=== PATIENT | male | born 1965 | race Caucasian/White ===

== ENCOUNTER → 2022-01-27 | Outpatient (CLI) | payer BC ==
[2020-05-03 06:20] VITALS: BP 128/73
--- NOTE | 2022-01-27 10:55 | RAD ---
US DPLX VENOUS EXTREMITY LOWER LT 01/27/2022 10:22 AM Clinical Information: Swelling and pain in the left lower extremity Comparison: None. Technique: Multiple grayscale, color Doppler, and spectral Doppler sonographic images of the lower ex tremity venous structures were obtained. Findings: The left common femoral, femoral, and popliteal veins exhibit normal compression, respiratory phasici ty, and augmentation. No intraluminal thrombi are identified. Color Doppler flow is demonstrated in t he left posterior tibial veins. Greater saphenous veins are patent at the saphenofemoral junction. Impression: 1. No evidence of deep venous thrombosis. Electronically signed by: Trinh Szymanski MD (01/27/2022 10:52 AM) [id number]
== END ==
LOC: US 10:12
PROVIDERS: ATTEND Nurse Practitioner Adult Health
DX: M79.662 Pain in left lower leg (principal); R22.42 Localized swelling, mass and lump, left lower limb; E66.01 Morbid (severe) obesity due to excess calories
CPT/HCPCS: 93971

== ENCOUNTER → 2022-01-30 | Outpatient (CLI) | payer OTHER, BC ==
[2020-05-03 06:20] VITALS: BP 128/73
[2022-01-30] MEDS: IOHEXOL 350 MG/ML 100 ML VIAL. IV ONE (16:45)
--- NOTE | 2022-01-30 17:27 | RAD ---
CTA CHEST History: Elevated d-dimer, abnormal blood chemistry, cellulitis right leg. Rule out PE. Comparison: None. Technique: CTA of the pulmonary arteries with intravenous contrast. 3-D postprocessing was performed. Findings: Pulmonary arteries: No pulmonary embolism. Aorta and great vessels: Ascending aortic aneurysm 4.9 cm at the level the right pulmonary artery. No dissection. Thyroid: No significant abnormalities. Mediastinum and mark: No mediastinal masses or adenopathy is seen. Esophagus: The visualized esophagus is normal. Heart: The heart is normal in size. There is no pericardial effusion. Airways, Lungs, Pleura: The central airways are patent. Calcified right lower lobe granuloma. No airs pace consolidation. No effusion or pneumothorax. Upper abdomen: Normal caliber of the visualized portions of the abdominal aorta measuring 2.6 cm at t he hiatus. Osseous structures and soft tissues: Within normal limits for age. Impression: 1. No pulmonary embolism. 2. Ascending aortic aneurysm measuring 4.9 cm at the level of the right pulmonary artery. ------ Exposure: One or more of the following individualized dose reduction techniques were utilized for thi s examination: 1. Automated exposure control 2. Adjustment of the mA and/or kV according to patient size 3. Use of iterative reconstruction technique. Electronically signed by: Hector Grigsby MD (01/30/2022 5:24 PM) [id number]
== END ==
LOC: CT 16:20
PROVIDERS: ATTEND Family Medicine
DX: I71.2 Thoracic aortic aneurysm, without rupture (principal); J84.10 Pulmonary fibrosis, unspecified; L03.115 Cellulitis of right lower limb; R79.9 Abnormal finding of blood chemistry, unspecified
CPT/HCPCS: 71275; Q9967